=== PATIENT | male | born 1960 | race Caucasian/White ===

== ENCOUNTER → 2016-12-07 | Outpatient (CLI) | payer MEDICARE ==
[2016-12-07 17:04] LABS: MEAN CORPUSCULAR HEMOGLOBIN 31.1 pg (27.0-33.0); MEAN CORPUSCULAR HGB CONC 36.2 g/dl (32.0-36.5); MEAN CORPUSCULAR VOLUME 85.9 fl (80.0-96.0); RED CELL DISTRIBUTION WIDTH 12.7 % (11.5-14.5); WHITE BLOOD COUNT 10.2 K/mm3 (4.0-10.0)
[2016-12-07 17:22] LABS: ALBUMIN 3.8 GM/DL (3.2-5.2); ALBUMIN/GLOBULIN RATIO 1.03 (1.00-1.93); ALKALINE PHOSPHATASE 114 U/L (45-117); ANION GAP 5 MEQ/L (8-16); AST/SGOT 23 U/L (15-37); BILIRUBIN,TOTAL 0.9 MG/DL (0.2-1.0); BLOOD UREA NITROGEN 13 MG/DL (7-18); CALCIUM LEVEL 8.7 MG/DL (8.5-10.1); CARBON DIOXIDE LEVEL 31 MEQ/L (21-32); CHLORIDE LEVEL 105 MEQ/L (98-107); CHOLESTEROL LEVEL 196 MG/DL (<200); CREATININE FOR GFR 1.18 MG/DL (0.70-1.30); GLOMERULAR FILTRATION RATE > 60.0 (>56); POTASSIUM SERUM 4.5 MEQ/L (3.5-5.1); SODIUM LEVEL 141 MEQ/L (136-145); THYROXINE (T4) 8.7 UG/DL (4.5-12.0); TOTAL PROTEIN 7.5 GM/DL (6.4-8.2); TRIGLYCERIDES LEVEL 1233 MG/DL (<150)
[2016-12-07 18:52] LABS: ALT/SGPT 37 U/L (12-78); GLUCOSE, FASTING 137 MG/DL (70-105)
== END ==
LOC: M WUC 14:41
PROVIDERS: ATTEND Family Medicine
DX: I10 Essential (primary) hypertension (principal); N40.0 Benign prostatic hyperplasia without lower urinary tract symptoms

== ENCOUNTER → 2017-09-14 | Outpatient (REF) | payer MEDICARE ==
[2017-09-14 12:29] LABS: HEMATOCRIT 42.6 % (42.0-52.0); HEMOGLOBIN 14.8 g/dl (14.0-18.0); MEAN CORPUSCULAR HEMOGLOBIN 30.4 pg (27.0-33.0); MEAN CORPUSCULAR HGB CONC 34.7 g/dl (32.0-36.5); MEAN CORPUSCULAR VOLUME 87.5 fl (80.0-96.0); PLATELET COUNT, AUTOMATED 189 10^3/uL (150-450); RED BLOOD COUNT 4.87 10^6/uL (4.30-6.10); RED CELL DISTRIBUTION WIDTH 12.5 % (11.5-14.5); WHITE BLOOD COUNT 9.3 10^3/uL (4.0-10.0)
[2017-09-14 13:10] LABS: ALBUMIN 3.9 GM/DL (3.2-5.2); ALBUMIN/GLOBULIN RATIO 1.15 (1.00-1.93); ALKALINE PHOSPHATASE 121 U/L (45-117); ALT/SGPT 37 U/L (12-78); ANION GAP 6 MEQ/L (8-16); AST/SGOT 25 U/L (7-37); BILIRUBIN,TOTAL 0.4 MG/DL (0.2-1.0); BLOOD UREA NITROGEN 17 MG/DL (7-18); CALCIUM LEVEL 8.7 MG/DL (8.5-10.1); CARBON DIOXIDE LEVEL 30 MEQ/L (21-32); CHLORIDE LEVEL 105 MEQ/L (98-107); CHOLESTEROL LEVEL 109 MG/DL (<200); CHOLESTEROL RISK RATIO 3.892 (<5); CREATININE FOR GFR 1.02 MG/DL (0.70-1.30); GLOMERULAR FILTRATION RATE > 60.0 (>56); GLUCOSE, FASTING 103 MG/DL (70-100); HDL CHOLESTEROL 28 MG/DL (>40); LDL CHOLESTEROL 20.2 MG/DL (<100); NON-HDL-C 81 MG/DL; POTASSIUM SERUM 4.5 MEQ/L (3.5-5.1); SODIUM LEVEL 141 MEQ/L (136-145); TOTAL PROTEIN 7.3 GM/DL (6.4-8.2); TRIGLYCERIDES LEVEL 304 MG/DL (<150)
== END ==
LOC: M LABDRAW1 12:14
DX: I10 Essential (primary) hypertension (principal); R53.83 Other fatigue; E03.9 Hypothyroidism, unspecified
CPT/HCPCS: 84443

== ENCOUNTER → 2018-05-28 | Outpatient (CLI) | payer MEDICARE | LOC: M WUC 13:05 | DX: M19.041 Primary osteoarthritis, right hand (principal); M79.641 Pain in right hand | CPT/HCPCS: 73130 ==

== ENCOUNTER 2022-12-27 22:43 | Inpatient (IN) | payer MEDICARE, MEDICAID ==
[~2022-12-27] VITALS: Ht 182.9 cm; Wt 140.9 kg
[~2022-12-27 22:43] MED LIST: ADDE30CA3 PO; GEMF600T5 PO; METF500T13 PO; OXYC-141 PO
[2022-12-27] MEDS ORDERED: TRIA37.5 PO (22:49)
[2022-12-28] MEDS ORDERED: KETOROLAC 30 MG/ML 1ML VIAL IV ONE (06:10)
[2022-12-28 06:43] LABS: BASO % 0.2 % (0.0-1.0); EOS # 0.1 10^3/uL (0.0-0.5); EOS % 0.5 % (0.0-3.0); HEMATOCRIT 43.8 % (42.0-52.0); HEMOGLOBIN 14.8 g/dl (13.5-17.5); LYMPH # 1.8 10^3/uL (1.5-5.0); LYMPH % 10.9 % (24.0-44.0); MEAN CORPUSCULAR HEMOGLOBIN 29.1 pg (27.0-33.0); MEAN CORPUSCULAR HGB CONC 33.8 g/dl (32.0-36.5); MEAN CORPUSCULAR VOLUME 86.2 fl (80.0-96.0); MONO % 6.4 % (2.0-8.0); NEUTROPHILS # 13.1 10^3/uL (1.5-8.5); NEUTROPHILS % 81.2 % (36.0-66.0); PLATELET COUNT, AUTOMATED 229 10^3/uL (150-450); RED BLOOD COUNT 5.08 10^6/uL (4.30-6.10); WHITE BLOOD COUNT 16.2 10^3/uL (4.0-10.0)
[2022-12-28 06:53] LABS: INR 0.93; PROTHROMBIN TIME 12.7 SECONDS (12.5-14.5)
[2022-12-28 06:54] LABS: PARTIAL THROMBOPLASTIN TIME 30.4 SECONDS (24.8-34.2)
[2022-12-28 07:11] LABS: ALBUMIN 3.9 G/DL (3.2-5.2); ALKALINE PHOSPHATASE 145 U/L (46-116); ALT/SGPT 33 U/L (7.0-40); AST/SGOT 25 U/L (<34); BILIRUBIN,TOTAL 1.9 MG/DL (0.3-1.2); BLOOD UREA NITROGEN 16 MG/DL (9-23); CALCIUM LEVEL 9.8 MG/DL (8.3-10.6); CARBON DIOXIDE LEVEL 29 MMOL/L (20-31); CHLORIDE LEVEL 98 MMOL/L (98-107); CREATININE FOR GFR 0.96 MG/DL (0.70-1.30); GLOMERULAR FILTRATION RATE > 60.0 (>49); GLUCOSE, FASTING 142 MG/DL (74-106); SODIUM LEVEL 134 MMOL/L (136-145); TOTAL PROTEIN 7.9 G/DL (5.7-8.2)
[2022-12-28 08:48] LABS: ERYTHROCYTE SEDIMENTATION RATE 61 mm/hr (0-20)
[2022-12-28] MEDS ORDERED: ceFAZolin SOD 1 GM in D5W MINI-BAG PLUS 50 ML IV ONE (08:55)
[2022-12-28] MEDS: ENOXAPARIN 40MG/0.4ML SYRINGE (J1650 PER 10MG) SC SCH ×2 (09:00→10:58)
[2022-12-28] MEDS ORDERED: ASPI81TA26 PO (09:17)
[2022-12-28] MEDS ORDERED: VITMTA PO (09:17)
[2022-12-28] MEDS ORDERED: METH10CO PO (09:18)
[2022-12-28] MEDS ORDERED: HOME MED LIST COMPLETE! XX SCH (09:20)
[2022-12-28] MEDS ORDERED: DOXYCYCLINE HYCLATE 100MG TABLET PO SCH (10:00)
[2022-12-28 10:06] LABS: RSV AMPLIFICATION NEGATIVE (NEGATIVE)
[2022-12-28] MEDS ORDERED: GLUCOSE 4GM CHEW TABLET PO PRN (10:10)
[2022-12-28] MEDS ORDERED: GLUCAGON INJ 1MG VIAL SC PRN (10:10)
[2022-12-28] MEDS ORDERED: DEXTROSE 50% 50ML SYRINGE IV PRN (10:10)
[2022-12-28] MEDS ORDERED: ACETAMINOPHEN TAB 650MG DOSE (2X325MG) PO PRN (10:10)
[2022-12-28 10:40] VITALS: BP 142/75; TEMP 96.6; O2SAT 93
[2022-12-28] MEDS ORDERED: IPRATROPIUM 0.5MG/ALBUTEROL 2.5MG INH SOL UD 3ML (DUONEB) NEB PRN (11:05)
[2022-12-28] MEDS ORDERED: MORPHINE 2 MG/ML 1ML VIAL IV PRN (11:05)
[2022-12-28] MEDS ORDERED: diphenhydrAMINE 25MG CAP PO PRN (11:10)
[2022-12-28] MEDS: INSULIN LISPRO (NovoLOG) PER UNIT SC SCH ×3 (12:00→21:00)
[2022-12-28] MEDS ORDERED: ISOVUE-370 76% 100ML VIAL As Ordered ONE (12:04)
[2022-12-28 12:14] LABS: HEPATITIS B SURFACE ANTIGEN NEGATIVE (NEGATIVE)
[2022-12-28 12:34] LABS: HEPATITIS C VIRUS ABY INDEX 0.13 INDEX (<0.8)
[2022-12-28 12:35] LABS: HEPATITIS B CORE ANTIBODY IGM NEGATIVE (NEGATIVE)
[2022-12-28] MEDS: ASPIRIN 81MG CHEW TABLET PO SCH (12:49)
[2022-12-28] MEDS: APIXABAN 5 MG TAB (ELIQUIS) PO SCH ×2 (13:41→21:07)
[2022-12-28] MEDS: METHADONE 5MG TAB PO SCH (13:42)
[2022-12-28] MEDS: METHADONE 10MG TAB PO SCH (13:42)
[2022-12-28 14:00] VITALS: BP 119/63; TEMP 97.3; O2SAT 93
[2022-12-28] MEDS: cefTRIAXone SOD 1 GM in D5W MINI-BAG PLUS 50 ML IV SCH (17:36)
[2022-12-28] MEDS ORDERED: RIVAROXABAN 10MG TAB (XARELTO) PO SCH (18:00)
[2022-12-28 19:07] LABS: APPEARANCE, URINE CLEAR (CLEAR); BACTERIA, URINE AUTO NEGATIVE (NEGATIVE); BILIRUBIN, URINE AUTO NEGATIVE (NEGATIVE); BLOOD, URINE BLOOD NEGATIVE (NEGATIVE); COLOR, URINE YELLOW (YELLOW); GLUCOSE, URINE (UA) AUTO NEGATIVE (NEGATIVE); KETONE, URINE AUTO NEGATIVE (NEGATIVE); LEUKOCYTE ESTERASE, URINE AUTO NEGATIVE (NEGATIVE); NITRITE, URINE AUTO NEGATIVE (NEGATIVE); PROTEIN, URINE AUTO NEGATIVE (NEGATIVE); RBC, URINE AUTO 1 /HPF (0-3); SPECIFIC GRAVITY URINE AUTO 1.045 (1.002-1.035); SQUAMOUS EPITHELIAL CELL UR AU 1 /HPF (0-6); WBC, URINE AUTO 3 /HPF (0-3)
[2022-12-28] MEDS ORDERED: VANCOMYCIN HCL 1,000 MG, VIAL MATE ADAPTER 1 EACH in D5W 250 ML IV ONE ×3 (19:45→22:00)
[2022-12-28 20:04] LABS: GC DNA AMPLIFICATION NEGATIVE (NEGATIVE)
[2022-12-28 21:00] VITALS: BP 151/77; TEMP 97.7; O2SAT 96
[2022-12-29] MEDS ORDERED: VANCOMYCIN HCL 1,000 MG, VIAL MATE ADAPTER 1 EACH in D5W 250 ML IV SCH (04:00)
[2022-12-29] MEDS ORDERED: VANCOMYCIN HCL 750 MG, VIAL MATE ADAPTER 1 EACH in D5W 250 ML IV SCH (05:00)
[2022-12-29 06:00] VITALS: BP 129/65; TEMP 96.8; O2SAT 92
[2022-12-29 06:24] LABS: HEMATOCRIT 38.8 % (42.0-52.0); HEMOGLOBIN 12.9 g/dl (13.5-17.5); MEAN CORPUSCULAR HEMOGLOBIN 28.9 pg (27.0-33.0); MEAN CORPUSCULAR HGB CONC 33.2 g/dl (32.0-36.5); MEAN CORPUSCULAR VOLUME 86.8 fl (80.0-96.0); PLATELET COUNT, AUTOMATED 175 10^3/uL (150-450); RED BLOOD COUNT 4.47 10^6/uL (4.30-6.10); WHITE BLOOD COUNT 10.5 10^3/uL (4.0-10.0)
[2022-12-29 06:53] LABS: ALBUMIN 3.2 G/DL (3.2-5.2); ALKALINE PHOSPHATASE 113 U/L (46-116); ALT/SGPT 25 U/L (7.0-40); AST/SGOT 25 U/L (<34); BILIRUBIN,TOTAL 1.4 MG/DL (0.3-1.2); BLOOD UREA NITROGEN 15 MG/DL (9-23); CALCIUM LEVEL 8.1 MG/DL (8.3-10.6); CARBON DIOXIDE LEVEL 30 MMOL/L (20-31); CHLORIDE LEVEL 99 MMOL/L (98-107); CREATININE FOR GFR 0.86 MG/DL (0.70-1.30); GLOMERULAR FILTRATION RATE > 60.0 (>49); GLUCOSE, FASTING 192 MG/DL (74-106); POTASSIUM SERUM 3.4 MMOL/L (3.5-5.1); SODIUM LEVEL 135 MMOL/L (136-145); TOTAL PROTEIN 6.4 G/DL (5.7-8.2)
[2022-12-29] MEDS: INSULIN LISPRO (NovoLOG) PER UNIT SC SCH ×4 (07:30→20:24)
[2022-12-29] MEDS ORDERED: POTASSIUM CHLORIDE 10MEQ SR TABLET PO ONE (08:15)
[2022-12-29] MEDS: METHADONE 10MG TAB PO SCH (08:29)
[2022-12-29] MEDS: DYAZIDE 37.5/25 CAP (TRIAM/HCTZ) PO SCH (08:29)
[2022-12-29] MEDS: APIXABAN 5 MG TAB (ELIQUIS) PO SCH ×2 (08:29→20:33)
[2022-12-29] MEDS: METHADONE 5MG TAB PO SCH (08:29)
[2022-12-29] MEDS: ASPIRIN 81MG CHEW TABLET PO SCH (08:30)
[2022-12-29] MEDS: DOXYCYCLINE HYCLATE 100MG TABLET PO SCH ×2 (08:30→20:33)
[2022-12-29] MEDS: MUPIROCIN 2% OINT 22 GM TUBE TOP SCH ×3 (10:00→20:33)
[2022-12-29 11:40] LABS: MAGNESIUM LEVEL 1.6 MG/DL (1.8-2.4)
[2022-12-29] MEDS: predniSONE 20 MG TAB PO SCH (11:52)
[2022-12-29] MEDS ORDERED: LIDOCAINE W/EPINEPHRINE 1% 20ML VIAL SC ONE (13:50)
[2022-12-29 14:00] VITALS: BP 115/74; TEMP 98.2; O2SAT 98
[2022-12-29] MEDS: cefTRIAXone SOD 1 GM in D5W MINI-BAG PLUS 50 ML IV SCH (17:40)
[2022-12-29 20:19] VITALS: BP 113/66; TEMP 97.5; O2SAT 99
[2022-12-30 06:00] VITALS: BP 128/66; TEMP 98.4; O2SAT 99
[2022-12-30] MEDS: INSULIN LISPRO (NovoLOG) PER UNIT SC SCH ×4 (07:30→21:00)
[2022-12-30] MEDS: METHADONE 10MG TAB PO SCH (09:41)
[2022-12-30] MEDS: DYAZIDE 37.5/25 CAP (TRIAM/HCTZ) PO SCH (09:41)
[2022-12-30] MEDS: MUPIROCIN 2% OINT 22 GM TUBE TOP SCH ×3 (09:41→20:55)
[2022-12-30] MEDS: ASPIRIN 81MG CHEW TABLET PO SCH (09:42)
[2022-12-30] MEDS: DOXYCYCLINE HYCLATE 100MG TABLET PO SCH ×2 (09:42→20:54)
[2022-12-30] MEDS: METHADONE 5MG TAB PO SCH (09:42)
[2022-12-30] MEDS: predniSONE 20 MG TAB PO SCH (09:42)
[2022-12-30] MEDS: APIXABAN 5 MG TAB (ELIQUIS) PO SCH ×2 (09:42→20:55)
[2022-12-30 10:19] LABS: HEMATOCRIT 39.1 % (42.0-52.0); HEMOGLOBIN 12.9 g/dl (13.5-17.5); MEAN CORPUSCULAR HEMOGLOBIN 29.1 pg (27.0-33.0); MEAN CORPUSCULAR VOLUME 88.1 fl (80.0-96.0); PLATELET COUNT, AUTOMATED 187 10^3/uL (150-450); RED BLOOD COUNT 4.44 10^6/uL (4.30-6.10); WHITE BLOOD COUNT 10.6 10^3/uL (4.0-10.0)
[2022-12-30 10:54] LABS: BLOOD UREA NITROGEN 18 MG/DL (9-23); CALCIUM LEVEL 8.8 MG/DL (8.3-10.6); CARBON DIOXIDE LEVEL 31 MMOL/L (20-31); CHLORIDE LEVEL 101 MMOL/L (98-107); CREATININE FOR GFR 0.94 MG/DL (0.70-1.30); GLOMERULAR FILTRATION RATE > 60.0 (>49); GLUCOSE, FASTING 212 MG/DL (74-106); POTASSIUM SERUM 3.4 MMOL/L (3.5-5.1); SODIUM LEVEL 140 MMOL/L (136-145)
[2022-12-30] MEDS ORDERED: POTASSIUM CHLORIDE 10MEQ SR TABLET PO ONE (11:15)
[2022-12-30 11:20] LABS: MAGNESIUM LEVEL 1.8 MG/DL (1.8-2.4)
[2022-12-30 14:00] VITALS: BP 120/67; TEMP 97.5; O2SAT 93
[2022-12-30] MEDS: cefTRIAXone SOD 1 GM in D5W MINI-BAG PLUS 50 ML IV SCH (16:59)
[2022-12-30 19:52] VITALS: BP 113/75; TEMP 98.2; O2SAT 95
[2022-12-30] MEDS: MIRALAX *UNIT DOSE* 17GM PACKET PO SCH (20:54)
[2022-12-30] MEDS: SENOKOT S TAB PO SCH (20:54)
[2022-12-30] MEDS: MOM 30ML SUSPENSION UDC PO SCH (20:55)
[2022-12-30 21:46] LABS: HEMATOCRIT 39.8 % (42.0-52.0); MEAN CORPUSCULAR HGB CONC 32.7 g/dl (32.0-36.5); MEAN CORPUSCULAR VOLUME 88.6 fl (80.0-96.0); PLATELET COUNT, AUTOMATED 217 10^3/uL (150-450); RED BLOOD COUNT 4.49 10^6/uL (4.30-6.10); WHITE BLOOD COUNT 12.8 10^3/uL (4.0-10.0)
[2022-12-30 22:01] LABS: BLOOD UREA NITROGEN 19 MG/DL (9-23); CARBON DIOXIDE LEVEL 31 MMOL/L (20-31); CHLORIDE LEVEL 102 MMOL/L (98-107); CREATININE FOR GFR 1.04 MG/DL (0.70-1.30); GLOMERULAR FILTRATION RATE > 60.0 (>49); GLUCOSE, FASTING 163 MG/DL (74-106); POTASSIUM SERUM 4.2 MMOL/L (3.5-5.1); SODIUM LEVEL 140 MMOL/L (136-145)
[2022-12-31 05:12] VITALS: BP 122/74; TEMP 97.4; O2SAT 96
[2022-12-31] MEDS: INSULIN LISPRO (NovoLOG) PER UNIT SC SCH ×4 (07:30→20:21)
[2022-12-31 07:38] LABS: BLOOD UREA NITROGEN 18 MG/DL (9-23); CALCIUM LEVEL 8.5 MG/DL (8.3-10.6); CARBON DIOXIDE LEVEL 30 MMOL/L (20-31); CHLORIDE LEVEL 105 MMOL/L (98-107); CREATININE FOR GFR 0.95 MG/DL (0.70-1.30); GLOMERULAR FILTRATION RATE > 60.0 (>49); GLUCOSE, FASTING 112 MG/DL (74-106); POTASSIUM SERUM 4.1 MMOL/L (3.5-5.1); SODIUM LEVEL 141 MMOL/L (136-145)
[2022-12-31 07:41] LABS: HEMATOCRIT 38.8 % (42.0-52.0); HEMOGLOBIN 12.6 g/dl (13.5-17.5); MEAN CORPUSCULAR HEMOGLOBIN 28.9 pg (27.0-33.0); MEAN CORPUSCULAR HGB CONC 32.5 g/dl (32.0-36.5); PLATELET COUNT, AUTOMATED 201 10^3/uL (150-450); RED BLOOD COUNT 4.36 10^6/uL (4.30-6.10); WHITE BLOOD COUNT 12.7 10^3/uL (4.0-10.0)
[2022-12-31] MEDS: predniSONE 20 MG TAB PO SCH (09:08)
[2022-12-31] MEDS: ASPIRIN 81MG CHEW TABLET PO SCH (09:09)
[2022-12-31] MEDS: METHADONE 5MG TAB PO SCH (09:09)
[2022-12-31] MEDS: MIRALAX *UNIT DOSE* 17GM PACKET PO SCH ×2 (09:09→20:18)
[2022-12-31] MEDS: DOXYCYCLINE HYCLATE 100MG TABLET PO SCH ×2 (09:09→20:19)
[2022-12-31] MEDS: SENOKOT S TAB PO SCH ×2 (09:09→20:19)
[2022-12-31] MEDS: METHADONE 10MG TAB PO SCH (09:09)
[2022-12-31] MEDS: APIXABAN 5 MG TAB (ELIQUIS) PO SCH ×2 (09:09→20:19)
[2022-12-31] MEDS: MUPIROCIN 2% OINT 22 GM TUBE TOP SCH ×3 (09:12→20:20)
[2022-12-31] MEDS: DYAZIDE 37.5/25 CAP (TRIAM/HCTZ) PO SCH (09:13)
[2022-12-31 14:00] VITALS: BP 122/66; TEMP 97.2; O2SAT 97
[2022-12-31] MEDS: cefTRIAXone SOD 1 GM in D5W MINI-BAG PLUS 50 ML IV SCH (17:22)
[2022-12-31 19:51] VITALS: BP 125/63; TEMP 97.3; O2SAT 93
[2022-12-31] MEDS: MOM 30ML SUSPENSION UDC PO SCH (20:19)
[2023-01-01 05:16] VITALS: BP 131/68; TEMP 97.3; O2SAT 97
[2023-01-01] MEDS: INSULIN LISPRO (NovoLOG) PER UNIT SC SCH ×2 (05:16→12:00)
[2023-01-01 06:07] LABS: HEMATOCRIT 39.4 % (42.0-52.0); HEMOGLOBIN 13.1 g/dl (13.5-17.5); MEAN CORPUSCULAR HEMOGLOBIN 29.2 pg (27.0-33.0); MEAN CORPUSCULAR HGB CONC 33.2 g/dl (32.0-36.5); MEAN CORPUSCULAR VOLUME 87.8 fl (80.0-96.0); PLATELET COUNT, AUTOMATED 214 10^3/uL (150-450); RED BLOOD COUNT 4.49 10^6/uL (4.30-6.10); WHITE BLOOD COUNT 13.6 10^3/uL (4.0-10.0)
[2023-01-01 06:39] LABS: BLOOD UREA NITROGEN 20 MG/DL (9-23); CALCIUM LEVEL 8.9 MG/DL (8.3-10.6); CARBON DIOXIDE LEVEL 30 MMOL/L (20-31); CHLORIDE LEVEL 102 MMOL/L (98-107); CREATININE FOR GFR 0.87 MG/DL (0.70-1.30); GLOMERULAR FILTRATION RATE > 60.0 (>49); GLUCOSE, FASTING 135 MG/DL (74-106); POTASSIUM SERUM 3.9 MMOL/L (3.5-5.1); SODIUM LEVEL 136 MMOL/L (136-145)
[2023-01-01] MEDS: METHADONE 5MG TAB PO SCH (09:21)
[2023-01-01] MEDS: DOXYCYCLINE HYCLATE 100MG TABLET PO SCH (09:21)
[2023-01-01] MEDS: METHADONE 10MG TAB PO SCH (09:21)
[2023-01-01] MEDS: MIRALAX *UNIT DOSE* 17GM PACKET PO SCH (09:21)
[2023-01-01] MEDS: ASPIRIN 81MG CHEW TABLET PO SCH (09:21)
[2023-01-01] MEDS: APIXABAN 5 MG TAB (ELIQUIS) PO SCH (09:26)
[2023-01-01] MEDS: MUPIROCIN 2% OINT 22 GM TUBE TOP SCH (09:33)
[2023-01-01] MEDS: SENOKOT S TAB PO SCH (09:33)
[2023-01-01] MEDS: DYAZIDE 37.5/25 CAP (TRIAM/HCTZ) PO SCH (09:33)
[2023-01-01] MEDS ORDERED: ELIQ5TAB PO (10:03)
[2023-01-01] MEDS ORDERED: DOXY100T PO (10:03)
[2023-01-01] MEDS ORDERED: HIBI4LIQ EX (10:03)
[2023-01-01] MEDS ORDERED: MUPI2OI TOP (10:03)
== END 2023-01-01 13:55 | disposition home or self-care (01) | DRG 607 ==
LOC: M ED 22:43 → M ED INP 12-28 09:59 → M MSPAV 12-28 10:50
PROVIDERS: ADMIT Internal Medicine; ATTEND Internal Medicine
PROC: 0HBGXZX Excision of Left Hand Skin, External Approach, Diagnostic (ICD-10-PCS; principal; 2022-12-29)
PROC: 0HBJXZX Excision of Left Upper Leg Skin, External Approach, Diagnostic (ICD-10-PCS; 2022-12-29)
PROC: B246ZZZ Ultrasonography of Right and Left Heart (ICD-10-PCS; 2022-12-30)
DX: R21 Rash and other nonspecific skin eruption (principal); R65.10 Systemic inflammatory response syndrome (SIRS) of non-infectious origin without acute organ dysfunction; I82.431 Acute embolism and thrombosis of right popliteal vein; F11.21 Opioid dependence, in remission; I10 Essential (primary) hypertension; G47.33 Obstructive sleep apnea (adult) (pediatric); E78.5 Hyperlipidemia, unspecified; I77.6 Arteritis, unspecified; F17.200 Nicotine dependence, unspecified, uncomplicated; E11.9 Type 2 diabetes mellitus without complications; J44.9 Chronic obstructive pulmonary disease, unspecified; J45.909 Unspecified asthma, uncomplicated; I25.10 Atherosclerotic heart disease of native coronary artery without angina pectoris; Z79.82 Long term (current) use of aspirin; Z86.14 Personal history of Methicillin resistant Staphylococcus aureus infection; Z79.84 Long term (current) use of oral hypoglycemic drugs; Z79.899 Other long term (current) drug therapy

== ENCOUNTER → 2023-03-22 | Outpatient (CLI) | payer MEDICARE, MEDICAID ==
[~2023-03-22] MED LIST changes: +ASPI81TA26 PO; +DOXY100T PO; +ELIQ5TAB PO; +HIBI4LIQ EX; +METH10CO PO; +MUPI2OI TOP; +TRIA37.5 PO; +VITMTA PO
[2023-03-22 10:26] LABS: INR 0.96; PROTHROMBIN TIME 12.5 SECONDS (12.5-14.5)
[2023-03-22 10:30] LABS: HEMATOCRIT 42.1 % (42.0-52.0); HEMOGLOBIN 13.8 g/dl (13.5-17.5); MEAN CORPUSCULAR HEMOGLOBIN 28.6 pg (27.0-33.0); MEAN CORPUSCULAR HGB CONC 32.8 g/dl (32.0-36.5); MEAN CORPUSCULAR VOLUME 87.2 fl (80.0-96.0); PLATELET COUNT, AUTOMATED 184 10^3/uL (150-450); RED BLOOD COUNT 4.83 10^6/uL (4.30-6.10); WHITE BLOOD COUNT 10.5 10^3/uL (4.0-10.0)
[2023-03-22 10:46] LABS: ALBUMIN 3.5 G/DL (3.2-5.2); ALKALINE PHOSPHATASE 124 U/L (46-116); ALT/SGPT 35 U/L (7.0-40); AST/SGOT 29 U/L (<34); BILIRUBIN,TOTAL 0.8 MG/DL (0.3-1.2); BLOOD UREA NITROGEN 14 MG/DL (9-23); CALCIUM LEVEL 9.2 MG/DL (8.3-10.6); CARBON DIOXIDE LEVEL 30 MMOL/L (20-31); CHLORIDE LEVEL 102 MMOL/L (98-107); CHOLESTEROL LEVEL 109 MG/DL (<200); CHOLESTEROL RISK RATIO 4.82 (<5); CREATININE FOR GFR 0.83 MG/DL (0.70-1.30); GLOMERULAR FILTRATION RATE > 60.0 (>49); GLUCOSE, FASTING 110 MG/DL (74-106); HDL CHOLESTEROL 22.6 MG/DL (>40); NON-HDL-C 86.4 MG/DL; POTASSIUM SERUM 4.1 MMOL/L (3.5-5.1); PROSTATIC SPECIFIC AG MONITOR 0.36 NG/ML (< 4.00); SODIUM LEVEL 138 MMOL/L (136-145); TOTAL PROTEIN 7.5 G/DL (5.7-8.2); TRIGLYCERIDES LEVEL 418 MG/DL (<150)
[2023-03-22 11:07] LABS: HEMOGLOBIN A1c 6.5 % (4.0-6.0)
== END ==
LOC: M RAD 09:09
PROVIDERS: ATTEND Family Medicine
DX: I10 Essential (primary) hypertension (principal); J44.9 Chronic obstructive pulmonary disease, unspecified; Z79.01 Long term (current) use of anticoagulants; R97.20 Elevated prostate specific antigen [PSA]

== ENCOUNTER 2023-07-13 06:27 | Inpatient (IN) | payer MEDICARE, MEDICAID ==
[~2023-07-13] VITALS: Ht 177.8 cm; Wt 145.4 kg
[2023-07-13 07:53] LABS: BASO % 0.2 % (0.0-1.0); EOS % 0.3 % (0.0-3.0); HEMOGLOBIN 13.7 g/dl (13.5-17.5); LYMPH # 1.9 10^3/uL (1.5-5.0); LYMPH % 14.9 % (24.0-44.0); MEAN CORPUSCULAR HEMOGLOBIN 27.8 pg (27.0-33.0); MEAN CORPUSCULAR HGB CONC 33.4 g/dl (32.0-36.5); MEAN CORPUSCULAR VOLUME 83.3 fl (80.0-96.0); MONO # 0.9 10^3/uL (0.0-0.8); MONO % 7.1 % (2.0-8.0); NEUTROPHILS # 9.6 10^3/uL (1.5-8.5); NEUTROPHILS % 76.9 % (36.0-66.0); PLATELET COUNT, AUTOMATED 218 10^3/uL (150-450); RED BLOOD COUNT 4.92 10^6/uL (4.30-6.10); WHITE BLOOD COUNT 12.5 10^3/uL (4.0-10.0)
[2023-07-13 08:16] LABS: LIPASE 21 U/L (12-53)
[2023-07-13 08:18] LABS: ALBUMIN 3.8 G/DL (3.2-5.2); ALKALINE PHOSPHATASE 127 U/L (46-116); ALT/SGPT 27 U/L (7.0-40); AST/SGOT 58 U/L (<34); BILIRUBIN,DIRECT 0.7 MG/DL (<0.4); BILIRUBIN,TOTAL 1.7 MG/DL (0.3-1.2); BLOOD UREA NITROGEN 11 MG/DL (9-23); CALCIUM LEVEL 8.9 MG/DL (8.3-10.6); CARBON DIOXIDE LEVEL 23 MMOL/L (20-31); CHLORIDE LEVEL 109 MMOL/L (98-107); CREATININE FOR GFR 0.77 MG/DL (0.70-1.30); GLOMERULAR FILTRATION RATE > 60.0 (>49); GLUCOSE, FASTING 106 MG/DL (74-106); POTASSIUM SERUM 3.7 MMOL/L (3.5-5.1); SODIUM LEVEL 142 MMOL/L (136-145); TOTAL PROTEIN 7.6 G/DL (5.7-8.2)
[2023-07-13] MEDS ORDERED: PIPERACILLIN/TAZOBACTAM SOD 3.375 GM in D5W MINI-BAG PLUS 50 ML IV ONE (09:30)
[2023-07-13 09:36] LABS: MAGNESIUM LEVEL 1.7 MG/DL (1.8-2.4)
[2023-07-13] MEDS ORDERED: GLUCAGON INJ 1MG VIAL SC PRN (10:20)
[2023-07-13] MEDS ORDERED: GLUCOSE 4GM CHEW TABLET PO PRN (10:20)
[2023-07-13] MEDS ORDERED: LR 1,000 ML IV ONE (10:20)
[2023-07-13] MEDS ORDERED: DEXTROSE 50% 50ML SYRINGE IV PRN (10:20)
[2023-07-13] MEDS ORDERED: MED REC IN PROGRESS XX SCH (10:50)
[2023-07-13] MEDS ORDERED: MAG SULF 1GM/100ML (MAG RUN) 1 GM in IV 1 EA IV ONE (11:00)
[2023-07-13 11:20] VITALS: BP 130/66; TEMP 97.7; O2SAT 97
[2023-07-13] MEDS ORDERED: ALBU8.5H PO (11:34)
[2023-07-13] MEDS ORDERED: HOME MED LIST COMPLETE! XX SCH (11:40)
[2023-07-13] MEDS: SALIVA SUBSTITUTE(MOUTHKOTE) BTL MT SCH ×3 (13:00→21:03)
[2023-07-13] MEDS: KETOROLAC 30 MG/ML 1ML VIAL IV SCH ×3 (13:09→22:59)
[2023-07-13] MEDS: METHADONE 5MG TAB PO SCH (13:09)
[2023-07-13] MEDS: METHADONE 10MG TAB PO SCH (13:09)
[2023-07-13] MEDS: METOPROLOL TART 25 MG TABLET PO SCH ×3 (13:10→22:56)
[2023-07-13] MEDS: LR 1,000 ML IV SCH ×2 (13:11→17:16)
[2023-07-13 14:06] VITALS: BP 134/67; TEMP 97.7; O2SAT 93
[2023-07-13] MEDS: HEPARIN SOD (PORCINE) 5000UNITS/ML 1ML VIAL/SYRINGE SQ SCH ×2 (14:52→21:04)
[2023-07-13] MEDS: PIPERACILLIN/TAZOBACTAM SOD 4.5 GM in D5W MINI-BAG PLUS 50 ML IV SCH ×2 (15:00→21:03)
[2023-07-13] MEDS: D5W/0.45% SODIUM CHLORIDE 1,000 ML IV SCH (15:00)
[2023-07-13 22:00] VITALS: BP 123/74; TEMP 97.3; O2SAT 97
[2023-07-14] MEDS: D5W/0.45% SODIUM CHLORIDE 1,000 ML IV SCH ×2 (01:45→11:56)
[2023-07-14] MEDS: PIPERACILLIN/TAZOBACTAM SOD 4.5 GM in D5W MINI-BAG PLUS 50 ML IV SCH ×2 (03:28→09:22)
[2023-07-14] MEDS ORDERED: ALBUTEROL SULFATE 2.5MG/0.5ML INH NEB SOLN NEB PRN (03:45)
[2023-07-14] MEDS: KETOROLAC 30 MG/ML 1ML VIAL IV SCH ×2 (04:13→11:55)
[2023-07-14] MEDS: HEPARIN SOD (PORCINE) 5000UNITS/ML 1ML VIAL/SYRINGE SQ SCH ×2 (05:14→14:00)
[2023-07-14] MEDS: METOPROLOL TART 25 MG TABLET PO SCH ×2 (05:15→11:56)
[2023-07-14 06:06] VITALS: BP 113/63; TEMP 97.7; O2SAT 96
[2023-07-14 06:41] LABS: BASO % 0.4 % (0.0-1.0); EOS # 0.3 10^3/uL (0.0-0.5); HEMATOCRIT 37.1 % (42.0-52.0); HEMOGLOBIN 12.2 g/dl (13.5-17.5); LYMPH # 1.7 10^3/uL (1.5-5.0); LYMPH % 21.2 % (24.0-44.0); MEAN CORPUSCULAR HEMOGLOBIN 28.2 pg (27.0-33.0); MEAN CORPUSCULAR HGB CONC 32.9 g/dl (32.0-36.5); MEAN CORPUSCULAR VOLUME 85.7 fl (80.0-96.0); MONO # 0.7 10^3/uL (0.0-0.8); NEUTROPHILS # 5.5 10^3/uL (1.5-8.5); PLATELET COUNT, AUTOMATED 174 10^3/uL (150-450); RED BLOOD COUNT 4.33 10^6/uL (4.30-6.10); WHITE BLOOD COUNT 8.2 10^3/uL (4.0-10.0)
[2023-07-14 07:13] LABS: ALBUMIN 3.3 G/DL (3.2-5.2); ALKALINE PHOSPHATASE 103 U/L (46-116); ALT/SGPT 27 U/L (7.0-40); AST/SGOT 85 U/L (<34); BILIRUBIN,TOTAL 1.8 MG/DL (0.3-1.2); BLOOD UREA NITROGEN 14 MG/DL (9-23); CALCIUM LEVEL 8.2 MG/DL (8.3-10.6); CARBON DIOXIDE LEVEL 27 MMOL/L (20-31); CHLORIDE LEVEL 108 MMOL/L (98-107); CREATININE FOR GFR 0.98 MG/DL (0.70-1.30); GLOMERULAR FILTRATION RATE > 60.0 (>49); GLUCOSE, FASTING 95 MG/DL (74-106); POTASSIUM SERUM 3.7 MMOL/L (3.5-5.1); SODIUM LEVEL 142 MMOL/L (136-145); TOTAL PROTEIN 6.5 G/DL (5.7-8.2)
[2023-07-14 08:07] LABS: MAGNESIUM LEVEL 1.8 MG/DL (1.8-2.4)
[2023-07-14] MEDS: METHADONE 5MG TAB PO SCH (09:19)
[2023-07-14] MEDS: METHADONE 10MG TAB PO SCH (09:20)
[2023-07-14] MEDS: SALIVA SUBSTITUTE(MOUTHKOTE) BTL MT SCH ×2 (09:22→12:45)
[2023-07-14 11:56] VITALS: BP 116/68
[2023-07-14] MEDS ORDERED: MAG SULF 1GM/100ML (MAG RUN) 1 GM in IV 1 EA IV ONE (13:00)
[2023-07-14] MEDS ORDERED: POTASSIUM CHLORIDE 10MEQ SR TABLET PO ONE (13:00)
[2023-07-14 14:18] VITALS: BP 145/74; TEMP 97.7; O2SAT 97
== END 2023-07-14 15:40 | disposition home or self-care (01) | DRG 392 ==
LOC: M ED 06:27 → M ED INP 10:14 → ENRESERV 10:33 → M MS5PR 11:20
PROVIDERS: ADMIT General Practice; ATTEND General Practice
DX: R10.11 Right upper quadrant pain (principal); Z68.41 Body mass index [BMI] 40.0-44.9, adult; K81.0 Acute cholecystitis; E11.9 Type 2 diabetes mellitus without complications; I12.9 Hypertensive chronic kidney disease with stage 1 through stage 4 chronic kidney disease, or unspecified chronic kidney disease; G47.33 Obstructive sleep apnea (adult) (pediatric); E78.5 Hyperlipidemia, unspecified; J45.909 Unspecified asthma, uncomplicated; E83.42 Hypomagnesemia; E88.810 Metabolic syndrome; A08.4 Viral intestinal infection, unspecified; K76.0 Fatty (change of) liver, not elsewhere classified; J44.9 Chronic obstructive pulmonary disease, unspecified; E80.6 Other disorders of bilirubin metabolism; E66.01 Morbid (severe) obesity due to excess calories; F17.200 Nicotine dependence, unspecified, uncomplicated; F11.21 Opioid dependence, in remission; Z86.718 Personal history of other venous thrombosis and embolism; Z79.84 Long term (current) use of oral hypoglycemic drugs; Z79.899 Other long term (current) drug therapy; Z86.14 Personal history of Methicillin resistant Staphylococcus aureus infection

== ENCOUNTER 2024-02-23 22:16 | Emergency (ER) | payer MEDICARE, MEDICAID ==
[~2024-02-23] VITALS: Ht 182.9 cm; Wt 145.0 kg
[~2024-02-23 22:16] MED LIST changes: +ALBU8.5H PO
[2024-02-23 22:50] LABS: VENOUS BASE EXCESS 3.4 (-2.0-2.0); VENOUS HCO3 31.2 MMOL/L (23.0-27.0); VENOUS PARTIAL PRESSURE CO2 60.6 mmHg (38.0-50.0); VENOUS PARTIAL PRESSURE O2 21.4 mmHg (30.0-50.0); VENOUS TOTAL CO2 33.1 MMOL/L (24.0-28.0)
[2024-02-23 22:56] LABS: BASO % 0.3 % (0.0-1.0); EOS % 0.4 % (0.0-3.0); HEMATOCRIT 42.6 % (42.0-52.0); HEMOGLOBIN 14.4 g/dl (13.5-17.5); LYMPH # 1.2 10^3/uL (1.5-5.0); LYMPH % 10.8 % (24.0-44.0); MEAN CORPUSCULAR HEMOGLOBIN 29.4 pg (27.0-33.0); MEAN CORPUSCULAR HGB CONC 33.8 g/dl (32.0-36.5); MEAN CORPUSCULAR VOLUME 86.9 fl (80.0-96.0); MONO # 0.5 10^3/uL (0.0-0.8); MONO % 4.9 % (2.0-8.0); NEUTROPHILS # 9.1 10^3/uL (1.5-8.5); PLATELET COUNT, AUTOMATED 176 10^3/uL (150-450)
[2024-02-23 23:17] LABS: LIPASE 27 U/L (12-53)
[2024-02-23 23:18] LABS: CK-MB VALUE MASS < 1.0 NG/ML (<3.6)
[2024-02-23 23:19] LABS: ALBUMIN 3.7 G/DL (3.2-5.2); ALKALINE PHOSPHATASE 143 U/L (46-116); ALT/SGPT 45 U/L (7.0-40); AST/SGOT 39 U/L (<34); BILIRUBIN,DIRECT 0.5 MG/DL (<0.4); BILIRUBIN,TOTAL 1.4 MG/DL (0.3-1.2); BLOOD UREA NITROGEN 10 MG/DL (9-23); CALCIUM LEVEL 8.9 MG/DL (8.3-10.6); CARBON DIOXIDE LEVEL 31 MMOL/L (20-31); CHLORIDE LEVEL 103 MMOL/L (98-107); CPK CREATINE PHOSPHOKINASE 55 U/L (46-171); CREATININE FOR GFR 0.81 MG/DL (0.70-1.30); GLOMERULAR FILTRATION RATE > 60.0 (>49); GLUCOSE, FASTING 243 MG/DL (74-106); MB/CK RELATIVE INDEX 1.81 (< OR =4); POTASSIUM SERUM 3.8 MMOL/L (3.5-5.1); SODIUM LEVEL 139 MMOL/L (136-145); TOTAL PROTEIN 7.5 G/DL (5.7-8.2)
[2024-02-23] MEDS: NS 1,000 ML IV SCH (23:24)
[2024-02-23] MEDS: ONDANSETRON 4MG 2ML VIAL IV ONE (23:24)
[2024-02-23] MEDS: PANTOPRAZOLE 40MG VIAL IV ONE (23:42)
[2024-02-23] MEDS: KETOROLAC 30 MG/ML 1ML VIAL IV ONE (23:42)
[2024-02-23] MEDS: GASTROGRAFIN SOLUTION 30ML PO SCH (23:50)
[2024-02-23] MEDS ORDERED: GASTROGRAFIN SOLUTION 30ML As Ordered ONE (23:59)
[2024-02-24] MEDS: METOCLOPRAMIDE INJ 10MG/2ML VIAL IV ONE (00:26)
[2024-02-24] MEDS ORDERED: ISOVUE-370 76% 100ML VIAL As Ordered ONE (00:48)
[2024-02-24] MEDS: PROMETHAZINE 25MG/ML 1ML VIAL IV ONE (01:50)
[2024-02-24] MEDS: MORPHINE 4 MG/ML 1ML VIAL IV ONE (01:51)
[2024-02-24 02:05] LABS: CK-MB VALUE MASS 1.2 NG/ML (<3.6)
[2024-02-24 02:06] LABS: MB/CK RELATIVE INDEX 1.96 (< OR =4)
[2024-02-24] MEDS ORDERED: CARA1TAB6 PO (02:29)
[2024-02-24] MEDS ORDERED: PROT1TAB2 PO (02:29)
[2024-02-24] MEDS ORDERED: PEPC1TAB5 PO (02:29)
[2024-02-24] MEDS: SUCRALFATE 1 GM TAB PO ONE (02:39)
[2024-02-24] MEDS: FAMOTIDINE IV BAG 20 MG in IV 1 EA IV ONE (02:39)
[2024-02-24 03:01] VITALS: BP 132/74; O2SAT 95
[2024-02-24 03:02] VITALS: TEMP 97.4
== END 2024-02-24 03:02 | disposition home or self-care (01) ==
LOC: EDBD 22:16 → M ED 22:16
DX: R10.13 Epigastric pain (principal); I44.0 Atrioventricular block, first degree; I45.81 Long QT syndrome; J44.9 Chronic obstructive pulmonary disease, unspecified; E11.9 Type 2 diabetes mellitus without complications; E78.5 Hyperlipidemia, unspecified; I10 Essential (primary) hypertension; G47.33 Obstructive sleep apnea (adult) (pediatric); F17.210 Nicotine dependence, cigarettes, uncomplicated; Z79.51 Long term (current) use of inhaled steroids; Z79.84 Long term (current) use of oral hypoglycemic drugs; Z79.899 Other long term (current) drug therapy
CPT/HCPCS: 71046; 74177; 80048; 80076; 81001; 82550; 82553; 82803; 83605; 83690; 84484; 85025; 87040; 87486; 87581; 87633; 87798; 93005; 93041; 94760; 96361; 96365; 96374; 96375; 99285; J1885; J2405; J2470; J2550; J2765; Q9967

== ENCOUNTER → 2024-09-29 | Outpatient (CLI) | payer MEDICARE, MEDICAID ==
[~2024-09-29] MED LIST changes: +CARA1TAB6 PO; +PEPC1TAB5 PO; +PROT1TAB2 PO
[2024-09-29 13:42] LABS: BASO # 0.1 10^3/uL (0.0-0.2); BASO % 0.5 % (0.0-1.0); EOS # 0.5 10^3/uL (0.0-0.5); EOS % 4.2 % (0.0-3.0); HEMATOCRIT 42.3 % (42.0-52.0); HEMOGLOBIN 14.3 g/dl (13.5-17.5); LYMPH # 2.6 10^3/uL (1.5-5.0); LYMPH % 23.9 % (24.0-44.0); MEAN CORPUSCULAR HEMOGLOBIN 29.3 pg (27.0-33.0); MEAN CORPUSCULAR HGB CONC 33.8 g/dl (32.0-36.5); MEAN CORPUSCULAR VOLUME 86.7 fl (80.0-96.0); MONO # 0.9 10^3/uL (0.0-0.8); MONO % 8.5 % (2.0-8.0); NEUTROPHILS # 6.9 10^3/uL (1.5-8.5); NEUTROPHILS % 62.5 % (36.0-66.0); PLATELET COUNT, AUTOMATED 200 10^3/uL (150-450); RED BLOOD COUNT 4.88 10^6/uL (4.30-6.10); WHITE BLOOD COUNT 11.1 10^3/uL (4.0-10.0)
[2024-09-29 14:00] LABS: HEMOGLOBIN A1c 6.4 % (4.0-6.0)
[2024-09-29 14:17] LABS: ALBUMIN 3.7 G/DL (3.2-5.2); ALKALINE PHOSPHATASE 143 U/L (40-129); ALT/SGPT 27 U/L (7.0-40); AST/SGOT 26 U/L (<34); BILIRUBIN,TOTAL 1.2 MG/DL (0.3-1.2); BLOOD UREA NITROGEN 18 MG/DL (9-23); CALCIUM LEVEL 8.9 MG/DL (8.3-10.6); CARBON DIOXIDE LEVEL 29 MMOL/L (20-31); CHLORIDE LEVEL 106 MMOL/L (98-107); CHOLESTEROL LEVEL 104 MG/DL (<200); CHOLESTEROL RISK RATIO 4.03 (<5); CREATININE FOR GFR 0.87 MG/DL (0.70-1.30); GLOMERULAR FILTRATION RATE > 60.0 (>49); GLUCOSE, FASTING 97 MG/DL (74-106); HDL CHOLESTEROL 25.8 MG/DL (>40); NON-HDL-C 78.2 MG/DL; POTASSIUM SERUM 3.9 MMOL/L (3.5-5.1); SODIUM LEVEL 144 MMOL/L (136-145); TOTAL PROTEIN 7.6 G/DL (5.7-8.2); TRIGLYCERIDES LEVEL 301 MG/DL (<150)
[2024-09-29 14:21] LABS: THYROID STIMULATING HORMONE 3.104 uIU/ML (0.55-4.78)
[2024-09-29 14:22] LABS: FREE T4 1.22 NG/DL (0.89-1.76)
== END ==
LOC: M LAB 12:22
DX: Z00.8 Encounter for other general examination (principal); E78.00 Pure hypercholesterolemia, unspecified

== ENCOUNTER → 2025-02-02 | Outpatient (REF) | payer MEDICARE, MEDICAID ==
[2025-02-02 13:29] LABS: BASO # 0.1 10^3/uL (0.0-0.2); BASO % 0.7 % (0.0-1.0); EOS # 0.4 10^3/uL (0.0-0.5); EOS % 4.5 % (0.0-3.0); LYMPH # 2.1 10^3/uL (1.5-5.0); LYMPH % 22.4 % (24.0-44.0); MONO # 0.7 10^3/uL (0.0-0.8); MONO % 8.0 % (2.0-8.0); NEUTROPHILS # 5.7 10^3/uL (1.5-8.5); NEUTROPHILS % 61.7 % (36.0-66.0); PLATELET COUNT, AUTOMATED 277 10^3/uL (150-450)
[2025-02-02 13:56] LABS: C REACTIVE PROTEIN QUANTITATIV 2.50 MG/DL (<1.0)
[2025-02-02 13:57] LABS: CPK CREATINE PHOSPHOKINASE 42 U/L (46-171)
[2025-02-02 13:58] LABS: ALT/SGPT 14 U/L (7.0-40); AST/SGOT 38 U/L (<34); CALCIUM LEVEL 8.5 MG/DL (8.3-10.6); CARBON DIOXIDE LEVEL 27 MMOL/L (20-31); CHLORIDE LEVEL 102 MMOL/L (98-107); CREATININE FOR GFR 0.88 MG/DL (0.70-1.30); GLOMERULAR FILTRATION RATE > 90.0 (>49); POTASSIUM SERUM 4.5 MMOL/L (3.5-5.1); SODIUM LEVEL 140 MMOL/L (136-145)
== END ==
LOC: M LAB REF 12:42
PROVIDERS: ATTEND Student in an Organized Health Care Education/Training Program
DX: L03.90 Cellulitis, unspecified (principal); T81.40XA Infection following a procedure, unspecified, initial encounter

== ENCOUNTER → 2025-02-05 | Outpatient (CLI) | payer MEDICARE, MEDICAID | LOC: M RAD 13:44 | PROVIDERS: ATTEND Orthopaedic Surgery | DX: M79.89 Other specified soft tissue disorders (principal) ==

== ENCOUNTER → 2025-02-09 | Outpatient (REF) | payer MEDICARE, MEDICAID ==
[2025-02-09 16:12] LABS: BASO # 0.1 10^3/uL (0.0-0.2); BASO % 0.5 % (0.0-1.0); EOS # 0.7 10^3/uL (0.0-0.5); EOS % 6.8 % (0.0-3.0); LYMPH # 2.3 10^3/uL (1.5-5.0); LYMPH % 23.3 % (24.0-44.0); MONO # 0.8 10^3/uL (0.0-0.8); MONO % 7.8 % (2.0-8.0); NEUTROPHILS # 6.1 10^3/uL (1.5-8.5); NEUTROPHILS % 60.7 % (36.0-66.0); PLATELET COUNT, AUTOMATED 233 10^3/uL (150-450)
[2025-02-09 16:42] LABS: ALT/SGPT 14 U/L (7.0-40); AST/SGOT 32 U/L (<34); C REACTIVE PROTEIN QUANTITATIV 2.51 MG/DL (<1.0); CALCIUM LEVEL 8.7 MG/DL (8.3-10.6); CARBON DIOXIDE LEVEL 28 MMOL/L (20-31); CHLORIDE LEVEL 102 MMOL/L (98-107); CPK CREATINE PHOSPHOKINASE 57 U/L (46-171); CREATININE FOR GFR 0.86 MG/DL (0.70-1.30); GLOMERULAR FILTRATION RATE > 90.0 (>49); POTASSIUM SERUM 4.1 MMOL/L (3.5-5.1); SODIUM LEVEL 140 MMOL/L (136-145)
== END ==
LOC: M LAB REF 14:12
PROVIDERS: ATTEND Family Medicine
DX: L03.90 Cellulitis, unspecified (principal); T81.40XA Infection following a procedure, unspecified, initial encounter; X58.XXXA Exposure to other specified factors, initial encounter

== ENCOUNTER → 2025-02-16 | Outpatient (REF) | payer MEDICARE, MEDICAID | LOC: M LAB REF 14:42 | PROVIDERS: ATTEND Physician Assistant Surgical | DX: Z47.1 Aftercare following joint replacement surgery (principal); T84.52XA Infection and inflammatory reaction due to internal left hip prosthesis, initial encounter ==

== ENCOUNTER → 2025-02-16 | Outpatient (REF) | payer MEDICARE, MEDICAID ==
[2025-02-16 15:01] LABS: BASO # 0.0 10^3/uL (0.0-0.2); BASO % 0.5 % (0.0-1.0); EOS # 0.4 10^3/uL (0.0-0.5); EOS % 4.3 % (0.0-3.0); LYMPH # 2.1 10^3/uL (1.5-5.0); LYMPH % 23.4 % (24.0-44.0); MONO # 0.7 10^3/uL (0.0-0.8); MONO % 7.4 % (2.0-8.0); NEUTROPHILS # 5.7 10^3/uL (1.5-8.5); NEUTROPHILS % 63.7 % (36.0-66.0); PLATELET COUNT, AUTOMATED 232 10^3/uL (150-450)
[2025-02-16 15:41] LABS: C REACTIVE PROTEIN QUANTITATIV 1.36 MG/DL (<1.0); CPK CREATINE PHOSPHOKINASE 47 U/L (46-171)
[2025-02-16 15:52] LABS: ALT/SGPT 14 U/L (7.0-40); AST/SGOT 33 U/L (<34); CALCIUM LEVEL 8.9 MG/DL (8.3-10.6); CARBON DIOXIDE LEVEL 27 MMOL/L (20-31); CHLORIDE LEVEL 102 MMOL/L (98-107); CREATININE FOR GFR 0.83 MG/DL (0.70-1.30); GLOMERULAR FILTRATION RATE > 90.0 (>49); POTASSIUM SERUM 4.4 MMOL/L (3.5-5.1); SODIUM LEVEL 138 MMOL/L (136-145)
== END ==
LOC: M LAB REF 14:43
PROVIDERS: ATTEND Student in an Organized Health Care Education/Training Program
DX: L03.90 Cellulitis, unspecified (principal); T81.40XA Infection following a procedure, unspecified, initial encounter; I10 Essential (primary) hypertension

== ENCOUNTER → 2025-02-16 | Outpatient (REF) | payer MEDICARE, MEDICAID ==
[2025-02-16 15:11] LABS: BASO # 0.1 10^3/uL (0.0-0.2); BASO % 0.6 % (0.0-1.0); EOS # 0.5 10^3/uL (0.0-0.5); EOS % 5.0 % (0.0-3.0); LYMPH # 2.2 10^3/uL (1.5-5.0); LYMPH % 24.2 % (24.0-44.0); MONO # 0.7 10^3/uL (0.0-0.8); MONO % 7.4 % (2.0-8.0); NEUTROPHILS # 5.6 10^3/uL (1.5-8.5); NEUTROPHILS % 62.0 % (36.0-66.0); PLATELET COUNT, AUTOMATED 246 10^3/uL (150-450)
[2025-02-16 15:29] LABS: ESTIMATED AVERAGE GLUCOSE 105.0 MG/DL (60-110)
[2025-02-16 15:40] LABS: ALT/SGPT 13 U/L (7.0-40); AST/SGOT 32 U/L (<34); CALCIUM LEVEL 8.9 MG/DL (8.3-10.6); CARBON DIOXIDE LEVEL 28 MMOL/L (20-31); CHLORIDE LEVEL 100 MMOL/L (98-107); CHOLESTEROL LEVEL 115 MG/DL (<200); CHOLESTEROL RISK RATIO 6.31 (<5); CREATININE FOR GFR 0.81 MG/DL (0.70-1.30); GLOMERULAR FILTRATION RATE > 90.0 (>49); NON-HDL-C 96.8 MG/DL; POTASSIUM SERUM 4.3 MMOL/L (3.5-5.1); SODIUM LEVEL 136 MMOL/L (136-145); TRIGLYCERIDES LEVEL 648 MG/DL (<150)
[2025-02-16 15:42] LABS: FREE T4 0.66 NG/DL (0.89-1.76)
[2025-02-18 12:07] LABS: PSA % FREE 50.0 % (calc) (>25); PSA FREE 0.1 ng/mL; PSA TOTAL 0.2 ng/mL (< OR = 4.0)
== END ==
LOC: M LAB REF 14:40
DX: Z00.8 Encounter for other general examination (principal); I10 Essential (primary) hypertension; E66.9 Obesity, unspecified; E78.1 Pure hyperglyceridemia; Z12.5 Encounter for screening for malignant neoplasm of prostate

== ENCOUNTER → 2025-02-23 | Outpatient (REF) | payer MEDICARE, MEDICAID ==
[2025-02-23 15:20] LABS: BASO # 0.0 10^3/uL (0.0-0.2); BASO % 0.4 % (0.0-1.0); EOS # 0.2 10^3/uL (0.0-0.5); EOS % 3.1 % (0.0-3.0); LYMPH # 1.7 10^3/uL (1.5-5.0); LYMPH % 22.1 % (24.0-44.0); MONO # 0.7 10^3/uL (0.0-0.8); MONO % 8.5 % (2.0-8.0); NEUTROPHILS # 5.0 10^3/uL (1.5-8.5); NEUTROPHILS % 65.4 % (36.0-66.0); PLATELET COUNT, AUTOMATED 200 10^3/uL (150-450)
[2025-02-23 15:43] LABS: C REACTIVE PROTEIN QUANTITATIV 1.33 MG/DL (<1.0)
[2025-02-23 15:44] LABS: ALT/SGPT 18 U/L (7.0-40); AST/SGOT 37 U/L (<34); CALCIUM LEVEL 8.7 MG/DL (8.3-10.6); CARBON DIOXIDE LEVEL 27 MMOL/L (20-31); CHLORIDE LEVEL 104 MMOL/L (98-107); CPK CREATINE PHOSPHOKINASE 42 U/L (46-171); CREATININE FOR GFR 0.79 MG/DL (0.70-1.30); GLOMERULAR FILTRATION RATE > 90.0 (>49); POTASSIUM SERUM 3.9 MMOL/L (3.5-5.1); SODIUM LEVEL 141 MMOL/L (136-145)
== END ==
LOC: M LAB REF 13:04
PROVIDERS: ATTEND Student in an Organized Health Care Education/Training Program
DX: L03.90 Cellulitis, unspecified (principal); T81.40XA Infection following a procedure, unspecified, initial encounter

== ENCOUNTER → 2025-03-18 | Outpatient (CLI) | payer MEDICARE, MEDICAID | LOC: M LAB 12:36 | PROVIDERS: ATTEND Orthopaedic Surgery | DX: M25.552 Pain in left hip (principal) ==

== ENCOUNTER → 2025-04-02 | Outpatient (CLI) | payer MEDICARE, MEDICAID | LOC: M LAB 13:09 | PROVIDERS: ATTEND Orthopaedic Surgery | DX: M25.552 Pain in left hip (principal); Z96.649 Presence of unspecified artificial hip joint ==